=== PATIENT | female | born 1935 | race Caucasian/White ===

== ENCOUNTER 2017-10-01 01:22 | Emergency (ER) | payer MEDICARE, OTHER ==
[~2017-10-01] VITALS: Ht 157.5 cm; Wt 54.4 kg
--- NOTE | 2017-10-01 02:02 | Emergency Room Report ---
History of Present Illness General Chief Complaint: Multiple Trauma/Fall Source: Medical Record, EMS Present Illness HPI 82-year-old female, coming from skilled nursing, DNR/DNI, hospice care, presenting with fall. Patient sustained laceration to back of her head. Patient is awake alert oriented 1 only which is her baseline. No other history able to be obtained Allergies: Coded Allergies: ADALIMUMAB (Verified Allergy, Unknown, 10/01/17) ANESTHETICS - AMIDE TYPE (Verified Allergy, Unknown, 10/01/17) BALSALAZIDE (Verified Allergy, Unknown, 10/01/17) INFLIXIMAB (Verified Allergy, Unknown, 10/01/17) IODINE (Verified Allergy, Unknown, 10/01/17) PENICILLINS (Verified Allergy, Unknown, 10/01/17) SULFAMETHOXAZOLE (Verified Allergy, Unknown, 10/01/17) TRIMETHOPRIM (Verified Allergy, Unknown, 10/01/17) Uncoded Allergies: ANESTHETIA (Allergy, Unknown, 10/01/17) STOPBLOCK (Allergy, Unknown, 10/01/17) Patient History Past Medical History: see triage record Past Surgical History: none Pertinent Family History: none Last Menstrual Period: n/a Reviewed Nursing Documentation: PMH: Agreed; PSxH: Agreed Nursing Documentation-PMH Past Medical History: No History, Except For Hx Asthma: Yes Hx Diabetes: Yes - DM2 Hx Dialysis: No - CKD Review of Systems All Other Systems: limited Physical Exam Vital Signs Date Time Temp Pulse Resp B/P (MAP) Pulse Ox O2 Delivery O2 Flow Rate FiO2 10/01/17 01:24 98.1 86 20 182/77 97 Room Air 98.1 Sp02 EP Interpretation: reviewed, normal General Appearance: other - awake, not speaking, nad , Chronically Ill Head: normocephalic - ~1cm linear laceration occipital region Eyes: bilateral eye normal inspection, bilateral eye PERRL, bilateral eye EOMI ENT: normal ENT inspection, normal pharynx, normal voice, moist mucus membranes Neck: normal inspection, full range of motion, supple Respiratory: normal inspection, normal breath sounds, no respiratory distress Cardiovascular #1: normal inspection, regular rate, rhythm, no edema, normal capillary refill Cardiovascular #2: 2+ radial (R), 2+ radial (L) Gastrointestinal: normal inspection, non tender, soft, non-distended, no guarding Musculoskeletal: normal inspection, back normal, normal range of motion, non- tender Neurologic: other - aox1, moves ext spont Psychiatric: other - demtnia Skin: normal inspection, normal color, no rash, warm/dry, well hydrated, normal turgor Procedures Laceration/Wound Repair Laceration/Wound Repair : Consent: Emergent Wound Location: head Wound's Depth, Shape: superficial Wound Length (cm): 2 Irrigated w/ Saline (ccs): 500 Wound Repaired With: jocy Number of Sutures: 2 Patient Tolerated: Well Complications: None Medical Decision Making Diagnostic Impression: Primary Impression: Head injury Additional Impressions: Scalp laceration Elevated troponin Fall ER Course 82-year-old female, found on floor, unwitnessed fall per notes and per EMS - patient DNR/DNI, hospice care, states do not admit patient DDX: Intracranial bleed, syncopal episode: Electrolyte disturbance, dehydration, ACS , arrhythmia Plan: Obtain labs, ua, ucx, CXR, EKG CT head ER course: CT head is negative patient agitated/trying to get out of bed removed her colostomy bag, replaced 1mg ativan given to patient trop elevated at 0.3, unknown baseline per documentation, says NO hospitalization as patient is in hospice, DNR DNI I contacted patient's PMD Dr Rodas for confirmation, reports pt in hospice will not admit patient, will send back to NH Disposition: DCed back to NH/hospice care FU with pmd as soon as possible Please note that this Emergency Department Report was dictated using [employer] counter feeder technology software, occasionally this can lead to erroneous entry secondary to interpretation by the dictation equipment EKG Diagnostic Results EP Interpretation: Yes Rate: normal Rhythm: NSR ST Segments: No acute changes although poor quality secondary to movement ASA given to patient: No Rhythm Strip EP Interpretation: Yes Rate: 70 Rhythm: NSR, no PVCs, no ectopy Chest X-ray CXR: Ordered: Yes 1 view Indication: Chest pain EP interpretation: Yes Interpretation: Cardiomegaly with pulmonary vascular congestion Impression:Cardiomegaly with pulmonary vascular congestion Electronically signed by Renee Antunez MD Laboratory Tests Test 10/01/17 01:52 10/01/17 03:00 Urine Color Yellow Urine Appearance Clear Urine pH 5 (4.5-8.0) Urine Specific Carmi 1.010 (1.005-1.035) Urine Protein 1+ (NEGATIVE) H Urine Glucose (UA) Negative (NEGATIVE) Urine Ketones Negative (NEGATIVE) Urine Occult Blood 1+ (NEGATIVE) H Urine Nitrite Negative (NEGATIVE) Urine Bilirubin Negative (NEGATIVE) Urine Urobilinogen Normal MG/DL (0.0-1.0) Urine Leukocyte Esterase Negative (NEGATIVE) Urine RBC 0-2 /HPF (0 - 2) Urine WBC 0-2 /HPF (0 - 2) Urine Squamous Epithelial Cells Occasional /LPF Urine Bacteria Few /HPF (NONE) White Blood Count 19.3 K/UL (4.8-10.8) H Red Blood Count 3.93 M/UL (4.20-5.40) L Hemoglobin 11.0 G/DL (12.0-16.0) L Hematocrit 35.1 % (37.0-47.0) L Mean Corpuscular Volume 89 FL (80-99) Mean Corpuscular Hemoglobin 28.1 PG (27.0-31.0) Mean Corpuscular Hemoglobin Concent 31.4 G/DL (32.0-36.0) L Red Cell Distribution Width 17.8 % (11.6-14.8) H Platelet Count 195 K/UL (150-450) Mean Platelet Volume 7.3 FL (6.5-10.1) Neutrophils (%) (Auto) % (45.0-75.0) Lymphocytes (%) (Auto) % (20.0-45.0) Monocytes (%) (Auto) % (1.0-10.0) Eosinophils (%) (Auto) % (0.0-3.0) Basophils (%) (Auto) % (0.0-2.0) Differential Total Cells Counted 100 Neutrophils % (Manual) 93 % (45-75) H Lymphocytes % (Manual) 1 % (20-45) L Monocytes % (Manual) 3 % (1-10) Eosinophils % (Manual) 0 % (0-3) Basophils % (Manual) 0 % (0-2) Band Neutrophils 3 % (0-8) Platelet Estimate Adequate Platelet Morphology Normal Anisocytosis 2+ Microcytosis 1+ Prothrombin Time 9.6 SEC (9.30-11.50) Prothrombin Time INR 0.9 (0.9-1.1) PTT 22 SEC (23-33) L Sodium Level 136 MMOL/L (136-145) Potassium Level 4.3 MMOL/L (3.5-5.1) Chloride Level 102 MMOL/L (98-107) Carbon Dioxide Level 27 MMOL/L (21-32) Anion Gap 7 mmol/L (5-15) Blood Urea Nitrogen 27 mg/dL (7-18) H Creatinine 0.7 MG/DL (0.55-1.30) Estimate Glomerular Filtration Rate mL/min (>60) Glucose Level 107 MG/DL (74-106) H Calcium Level 8.5 MG/DL (8.5-10.1) Total Bilirubin 0.7 MG/DL (0.2-1.0) Aspartate Amino Transferase (AST) 47 U/L (15-37) H Alanine Aminotransferase (ALT) 29 U/L (12-78) Alkaline Phosphatase 260 U/L (46-116) H Total Creatine Kinase 23 U/L (26-308) L Troponin I 0.390 ng/mL (0.000-0.056) Pro-B-Type Natriuretic Peptide 5866 pg/mL (0-125) H Total Protein 6.8 G/DL (6.4-8.2) Albumin 2.5 G/DL (3.4-5.0) L Globulin 4.3 g/dL Albumin/Globulin Ratio 0.6 (1.0-2.7) L CT/MRI/US Diagnostic Results CT/MRI/US Diagnostic Results : Imaging Test Ordered: CT head Impression negative for acute process Last Vital Signs Date Time Temp Pulse Resp B/P (MAP) Pulse Ox O2 Delivery O2 Flow Rate FiO2 10/01/17 01:24 98.1 86 20 182/77 97 Room Air 98.1 Disposition: XFER SNF Condition: Serious Renee Antunez M.D. Oct 01, 2017 02:02
[2017-10-01] MEDS ORDERED: ACETAMINOPHEN120 MG RECTAL (03:07)
[2017-10-01] MEDS ORDERED: MELATONIN10 M1 ORAL (03:07)
[2017-10-01] MEDS ORDERED: LANTUS SOL100 UNIT/1 SUBQ (03:07)
[2017-10-01] MEDS ORDERED: BISACODYL10 M1 RC (03:07)
[2017-10-01] MEDS ORDERED: CRANBERRY400 M1 PO (03:07)
[2017-10-01] MEDS ORDERED: LASIX40 MG ORAL (03:07)
[2017-10-01] MEDS ORDERED: LEVOTHYROXINE50 MCG ORAL (03:07)
[2017-10-01] MEDS ORDERED: LORAZEPAM2 MG/1 M4 SL (03:07)
[2017-10-01] MEDS ORDERED: ATROPINE SULFATE SL (03:07)
[2017-10-01] MEDS ORDERED: HYDRALAZINE HCL25 M1 ORAL (03:07)
[2017-10-01] MEDS ORDERED: TOPROL XL25 MG ORAL (03:16)
[2017-10-01] MEDS ORDERED: KLOR-CON 1010 MEQ ORAL (03:16)
[2017-10-01] MEDS ORDERED: NORCO 10-325 T1 EACH ORAL (03:16)
[2017-10-01] MEDS ORDERED: SENNA8.6 M2 PO (03:16)
[2017-10-01] MEDS ORDERED: PREDNISONE10 MG ORAL (03:16)
[2017-10-01] MEDS ORDERED: MS CONTIN30 MG ORAL (03:16)
[2017-10-01 03:35] LABS: ANION GAP 7 mmol/L (5-15); BLOOD UREA NITROGEN 27 mg/dL (7-18); CALCIUM 8.5 MG/DL (8.5-10.1); CARBON DIOXIDE 27 MMOL/L (21-32); CHLORIDE 102 MMOL/L (98-107); CREATININE 0.7 MG/DL (0.55-1.30); POTASSIUM 4.3 MMOL/L (3.5-5.1); SODIUM 136 MMOL/L (136-145)
[2017-10-01 03:36] LABS: HEMATOCRIT 35.1 % (37.0-47.0); MEAN CORPUSCULAR VOLUME 89 FL (80-99); PLATELET COUNT 195 K/UL (150-450); RED BLOOD COUNT 3.93 M/UL (4.20-5.40); RED CELL DISTRIBUTION WIDTH 17.8 % (11.6-14.8); WHITE BLOOD COUNT 19.3 K/UL (4.8-10.8)
[2017-10-01 03:40] LABS: INR 0.9 (0.9-1.1)
[2017-10-01 03:47] LABS: ALANINE AMINOTRANSFERASE 29 U/L (12-78); ALBUMIN 2.5 G/DL (3.4-5.0); ALBUMIN/GLOBULIN RATIO 0.6 (1.0-2.7); ALKALINE PHOSPHATASE 260 U/L (46-116); ASPARTATE AMINO TRANSFERASE 47 U/L (15-37); BILIRUBIN,TOTAL 0.7 MG/DL (0.2-1.0); CREATINE KINASE 23 U/L (26-308)
[2017-10-01] MEDS ORDERED: LORazepam Inj 2mg/ml 1ml IV ONE (04:00)
[2017-10-01 04:45] VITALS: BP 161/89
[2017-10-01 04:57] LABS: APPEARANCE,URINE CLEAR; BILIRUBIN, URINE NEGATIVE (NEGATIVE); GLUCOSE, URINE (UA) NEGATIVE (NEGATIVE); KETONES,URINE NEGATIVE (NEGATIVE); LEUKOCYTE ESTERASE ,URINE NEGATIVE (NEGATIVE); NITRITE,URINE NEGATIVE (NEGATIVE); PH,URINE 5 (4.5-8.0); PROTEIN,URINE 1+ (NEGATIVE); UROBILINOGEN,URINE NORMAL MG/DL (0.0-1.0)
[2017-10-01 04:59] LABS: COLOR,URINE YELLOW
[2017-10-01 06:09] VITALS: BP 95/54
[2017-10-01 08:04] VITALS: BP 133/61
--- NOTE | 2017-10-01 09:08 | Diagnostic Imaging Report ---
Indication: Headache Technique: Contiguous 5 mm thick transaxial imaging of the head obtained in a Siemens Sensation [address] scanner. Soft tissue and bone windows generated. Automatic Exposure Control was utilized. Total Dose length Product (DLP): 1309.[address] Dose Index Volume (CTDIvol): 70.38 mGy Comparison: none Findings: There is moderate prominence of the ventricles, basal cisterns, and cerebral sulci consistent with atrophy. Moderate, nonspecific, white matter hypoattenuation is noted throughout the brain consistent with chronic small vessel disease. There is no midline shift, edema, acute hemorrhage, mass effect, or abnormal extra-axial fluid collections. Bones and extra osseous soft tissues are unremarkable. Impression: No acute intracranial bleed, mass effect or edema. Moderate atrophy of the brain. Evidence of chronic small vessel disease involving white matter tracts. [facility] has communicated the preliminary results to the Emergency Department. Their findings are largely concordant with this report. The CT scanner at [facility] is accredited by the [employer] [place] and the scans are performed using dose optimization techniques as appropriate to a performed exam including Automatic Exposure control.
--- NOTE | 2017-10-01 10:17 | Diagnostic Imaging Report ---
Indication: Chest pain Comparison: None A single view chest radiograph was obtained. Findings: No infiltrates are identified. Lung volumes are low. The heart is prominent in size. Bones are osteopenic. There is an unusual ossification about the right clavicle. IMPRESSION: No acute cardiopulmonary disease. Unusual soft tissue calcification involving the area surrounding the right clavicle not evaluated well on this study.
--- NOTE | 2017-10-01 16:30 | Cardiology Report ---
APPROVED REPORT EKG Measurement Heart [id number] OR [id number] [id number] Sinus rhythm with 1st degree AV block Left ventricular hypertrophy with repolarization abnormality Cannot rule out Septal infarct, age undetermined Abnormal ECG
== END 2017-10-01 08:22 ==
LOC: EDBD 01:22 → EMR 02:02
DX: S01.01XA Laceration without foreign body of scalp, initial encounter (principal); W19.XXXA Unspecified fall, initial encounter; Y92.129 Unspecified place in nursing home as the place of occurrence of the external cause; E11.9 Type 2 diabetes mellitus without complications; J45.909 Unspecified asthma, uncomplicated; R51 Headache; Z88.0 Allergy status to penicillin; Z88.8 Allergy status to other drugs, medicaments and biological substances; Z88.2 Allergy status to sulfonamides; Z88.4 Allergy status to anesthetic agent; G31.9 Degenerative disease of nervous system, unspecified
CPT/HCPCS: 36415; 70450; 71045; 80053; 81003; 82550; 83880; 84484; 85007; 85025; 85610; 85730; 93005; 96374; 99284